=== PATIENT | male | born 1950 | race Caucasian/White ===

== ENCOUNTER → 2021-07-22 | Day surgery (SDC) | payer OTHER, MEDICARE ==
[~2021-07-22] VITALS: Ht 177.8 cm; Wt 81.9 kg
[~2021-07-22] MED LIST: CALCIUM PO; MEN 50 PLUS MU1 EACH PO; NORCO 5-325 TA1 EACH PO; ONDANSETRON ODT8 MG PO; [UNRECOGNIZED DRUG - OTHER] PO
[2021-07-22 07:53] LABS: HCT 42.6 % (42.0-52.0); HGB 14.8 g/dl (13.2-18.0); MCHC 34.7 g/dL (32.0-36.0); MPV 9.5 fL (6.0-9.5); RBC 4.63 M/uL (4.70-6.00); RDW 12.6 % (11.5-14.0); WBC 5.1 K/uL (4.0-10.5)
[2021-07-22 08:09] LABS: ALBUMIN 4.1 g/dL (3.4-5.0); BILIRUBIN - TOTAL 0.7 mg/dL (0.2-1.0); BUN/CREAT RATIO (CALC) 13.3 RATIO; CREATININE 0.98 mg/dL (0.67-1.17); GLOBULIN (CALCULATION) 3.1 g/dL; POTASSIUM 4.1 mmol/L (3.5-5.1); TOTAL PROTEIN 7.2 g/dL (6.4-8.2)
== END | disposition home or self-care (01) ==
LOC: FAS 07:02
PROVIDERS: Surgery
DX: K64.1 Second degree hemorrhoids (principal); K57.30 Diverticulosis of large intestine without perforation or abscess without bleeding; K64.5 Perianal venous thrombosis; Z87.891 Personal history of nicotine dependence
CPT/HCPCS: 36415; 80053; J1100; J1610; J2250; J2704; J7120